=== PATIENT | male | born 1935 ===

== ENCOUNTER 2020-11-18 05:28 | Inpatient (IN) | payer MEDICARE ==
[2020-11-18] MEDS ORDERED: MELATONIN 5 MG TAB PO PRN (06:54)
[2020-11-18] MEDS: traZODone 50 MG TAB PO SCH (21:11)
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
[2020-11-19] MEDS ORDERED: NON-FORMULARY EACH (Apixaban 5 MG Tablet) PO SCH (10:30)
[2020-11-19] MEDS ORDERED: CYANOCOBALAMIN 2500 MCG SL SCH (10:30)
[2020-11-19] MEDS ORDERED: CITALOPRAM HYDROBROMIDE 40 MG PO SCH (10:30)
[2020-11-19] MEDS ORDERED: NON-FORMULARY EACH (Omeprazole [Omeprazole] 20 MG Capsule.Dr) PO SCH (10:30)
[2020-11-19] MEDS ORDERED: RIVASTIGMINE TARTRATE 6 MG PO SCH (10:30)
--- NOTE | 2020-11-19 11:45 | Consultation ---
History of Present Illness - Reason for Consult Consult date: 11/19/20 Medical Management Requesting physician: REYNA HILTON - History of Present Illness 85 YO Male with Vascular Dementia with Behavioral Disturbance, Cerebral Atherosclerosis admitted to [facility] for Psychiatric Stabilization. Consult placed by Dr. Hilton for medical management. Pt seen and evaluated in the recreation room. Pt denies fever, chills, CP, Palpitations, NVD, Skin rash, recent ill contacts, or known exposure to Covid 19. No reported nursing events. Past History Past Surgical History: No surgical history, Other (Reviewed) Social history: . denies: smoking, alcohol abuse Family history: no significant family history (Reviewed) Medications and Allergies Allergies Allergy/AdvReac Type Severity Reaction Status Date / Time amoxicillin [From Augmentin] Allergy Unknown Verified 11/18/20 20:09 cephalexin [From Keflex] Allergy Unknown Verified 11/18/20 20:09 clavulanic acid Allergy Unknown Verified 11/18/20 20:09 [From Augmentin] clindamycin Allergy Unknown Verified 11/18/20 20:09 orphenadrine [From Norflex] Allergy Unknown Verified 11/18/20 20:09 Home Medications Medication Instructions Recorded Confirmed Last Taken Type Apixaban [Eliquis] 5 mg PO DAILY 11/18/20 11/18/20 Unknown History Cetirizine HCl [Zyrtec 10mg tab] 10 mg PO HS 11/18/20 11/18/20 Unknown History Citalopram Hydrobromide [Celexa] 40 mg PO DAILY 11/18/20 11/18/20 Unknown History Cyanocobalamin (Vitamin B-12) 2,500 mcg SL DAILY 11/18/20 11/18/20 Unknown History [Vitamin B-12] Levothyroxine [Synthroid] 75 mcg PO QAM 11/18/20 11/18/20 Unknown History Memantine [Namenda] 10 mg PO BID 11/18/20 11/18/20 Unknown History Metoprolol [Lopressor] 25 mg PO TID 11/18/20 11/18/20 Unknown History Omeprazole 20 mg PO DAILY 11/18/20 11/18/20 Unknown History Pregabalin [Lyrica] 50 mg PO BID 11/18/20 11/18/20 Unknown History Rivastigmine Tartrate 6 mg PO BID 11/18/20 11/18/20 Unknown History [Rivastigmine] Simvastatin 20 mg PO HS 11/18/20 11/18/20 Unknown History traMADoL [Ultram] 50 mg PO TID 11/18/20 11/18/20 Unknown History Active Meds: Active Medications Apixaban (Apixaban 5 Mg Tab) 5 mg PO DAILY [facility] Cetirizine HCl (Cetirizine 10 Mg Tab) 10 mg PO HS [facility] Citalopram Hydrobromide (Citalopram 20 Mg Tab) 40 mg PO DAILY [facility] Cyanocobalamin (Cyanocobalamin (Vit B-12) 1000 Mcg Tab) 2,500 mcg PO QDAY [facility] Levothyroxine Sodium (Levothyroxine 75 Mcg Tab) 75 mcg PO 0600 [facility] Melatonin (Melatonin 5 Mg Tab) 5 mg PO QHS PRN PRN Reason: Sleep Last Admin: 11/18/20 21:11 Dose: 5 mg Documented by: Memantine (Memantine 10 Mg Tab) 10 mg PO BID [facility] Metoprolol Tartrate (Metoprolol Tartrate 25 Mg Tab) 25 mg PO TID [facility] Pantoprazole Sodium (Pantoprazole 20 Mg Tab) 20 mg PO QDAY [facility] Pravastatin Sodium (Pravastatin 20 Mg Tab) 20 mg PO QHS [facility] Pregabalin (Pregabalin 50 Mg Cap) 50 mg PO BID [facility] Rivastigmine Tartrate (Rivastigmine Tartrate 1.5 Mg Cap) 6 mg PO BID [facility] Tramadol HCl (Tramadol 50 Mg Tab) 50 mg PO TID [facility] Trazodone HCl (Trazodone 50 Mg Tab) 50 mg PO QHS [facility] Last Admin: 11/18/20 21:11 Dose: 50 mg Documented by: Review of Systems Constitutional: no weight loss, no weight gain, no fever, no chills Ears, nose, mouth and throat: no ear pain, no ear discharge Cardiovascular: no chest pain, no orthopnea, no palpitations, no rapid/irregular heart beat, no syncope Respiratory: no cough, no cough with sputum, no excessive sputum, no hemoptysis, no dyspnea on exertion Gastrointestinal: no abdominal pain, no nausea, no vomiting, no diarrhea, no constipation, no change in bowel habits Genitourinary Male: no hematuria, no flank pain, no urinary frequency, no urinary hesitancy Rectal: no pain, no incontinence, no bleeding Musculoskeletal: no neck pain, no shooting arm pain, no arm numbness/tingling, no low back pain Integumentary: no rash, no redness, no sores Neurological: no transient paralysis, no weakness, no parathesias, no numbness, no syncope Psychiatric: no anxiety, no change in sleep habits, no hypersomnia, no change in appetite, no change in libido, no suicidal ideation Endocrine: no cold intolerance, no polyphagia, no excessive thirst, no polyuria, no nocturia Hematologic/Lymphatic: no easy bruising, no lymphadenopathy Allergic/Immunologic: no allergic rhinitis, no persistent infections Exam - Constitutional Vitals: Temp Pulse Resp BP Pulse Ox 98.0 F 100 H 18 101/56 94 11/19/20 08:55 11/19/20 08:55 11/19/20 08:55 11/19/20 08:55 11/19/20 08:55 General appearance: Present: no acute distress, well-nourished - EENT Eyes: Present: PERRL ENT: clear oral mucosa, hearing decreased - Neck Neck: Present: supple, normal ROM - Respiratory Respiratory effort: normal Respiratory: bilateral: CTA - Cardiovascular Heart Sounds: Present: S1 & S2. Absent: rub, click - Extremities Extremities: pulses symmetrical, No edema Peripheral Pulses: within normal limits - Abdominal General gastrointestinal: Present: soft, non-tender, non-distended, normal bowel sounds Male genitourinary: Present: normal - Integumentary Integumentary: Present: clear, warm, dry - Musculoskeletal Musculoskeletal: gait normal, strength equal bilaterally - Psychiatric Psychiatric: cooperative - Neurologic Neurologic: CNII-XII intact, moves all extremities Assessment and Plan - Patient Problems (1) Cerebral atherosclerosis Current Visit: Yes Status: Acute Plan to address problem: Supportive care, antiplatelet therapy as clinically indicated. (2) Dementia with behavioral disturbance Current Visit: Yes Status: Acute Qualifiers: Dementia type: vascular dementia Qualified Code(s): F01.51 - Vascular dementia with behavioral disturbance Plan to address problem: verbal prompting, verbal redirection, benzodiazepine therapy as clinically indicated.
[2020-11-19] MEDS: traMADol 50 MG TAB PO SCH ×2 (13:59→21:17)
[2020-11-19] MEDS: CITALOPRAM 20 MG TAB PO SCH (14:00)
[2020-11-19] MEDS: MEMANTINE 10 MG TAB PO SCH ×2 (14:00→21:21)
[2020-11-19] MEDS: METOPROLOL TARTRATE 25 MG TAB PO SCH ×2 (14:00→21:18)
[2020-11-19] MEDS: CYANOCOBALAMIN (VIT B-12) 1000 MCG TAB PO SCH (14:15)
[2020-11-19] MEDS: APIXABAN 5 MG TAB PO SCH (14:15)
[2020-11-19] MEDS: PREGABALIN 50 MG CAP PO SCH ×2 (14:54→21:20)
[2020-11-19] MEDS: RIVASTIGMINE TARTRATE 1.5 MG CAP PO SCH (21:16)
[2020-11-19] MEDS: CETIRIZINE 10 MG TAB PO SCH (21:18)
[2020-11-19] MEDS: traZODone 50 MG TAB PO SCH (21:20)
[2020-11-19] MEDS: PRAVASTATIN 20 MG TAB PO SCH (21:21)
[2020-11-19] MEDS ORDERED: NON-FORMULARY EACH (Simvastatin [Simvastatin] 20 MG Tablet) PO SCH (22:00)
[2020-11-20] MEDS: LEVOTHYROXINE 75 MCG TAB PO SCH (05:50)
[2020-11-20] MEDS ORDERED: CITALOPRAM 20 MG TAB PO SCH (10:00)
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
[2020-11-20] MEDS: MEMANTINE 10 MG TAB PO SCH ×2 (10:11→21:09)
[2020-11-20] MEDS: APIXABAN 5 MG TAB PO SCH (10:11)
[2020-11-20] MEDS: CITALOPRAM 20 MG TAB PO SCH (10:11)
[2020-11-20] MEDS: CYANOCOBALAMIN (VIT B-12) 1000 MCG TAB PO SCH (10:12)
[2020-11-20] MEDS: PANTOPRAZOLE 20 MG TAB PO SCH (10:12)
[2020-11-20] MEDS: RIVASTIGMINE TARTRATE 1.5 MG CAP PO SCH ×2 (10:13→21:09)
[2020-11-20] MEDS: METOPROLOL TARTRATE 25 MG TAB PO SCH ×3 (10:14→21:26)
[2020-11-20] MEDS: traMADol 50 MG TAB PO SCH (10:19)
[2020-11-20] MEDS: risperiDONE 0.25 MG TAB PO SCH ×2 (10:33→21:09)
[2020-11-20] MEDS: PREGABALIN 50 MG CAP PO SCH ×2 (10:49→21:21)
[2020-11-20] MEDS ORDERED: traMADol 50 MG TAB PO PRN (11:00)
[2020-11-20] MEDS: PRAVASTATIN 20 MG TAB PO SCH (21:09)
[2020-11-20] MEDS: CETIRIZINE 10 MG TAB PO SCH (21:09)
[2020-11-20] MEDS: traZODone 50 MG TAB PO SCH (21:09)
[2020-11-21] MEDS: LEVOTHYROXINE 75 MCG TAB PO SCH (05:43)
[2020-11-21] MEDS: METOPROLOL TARTRATE 25 MG TAB PO SCH ×3 (09:28→21:14)
[2020-11-21] MEDS: MEMANTINE 10 MG TAB PO SCH ×2 (09:29→21:16)
[2020-11-21] MEDS: PREGABALIN 50 MG CAP PO SCH ×2 (09:29→21:14)
[2020-11-21] MEDS: CITALOPRAM 20 MG TAB PO SCH (09:29)
[2020-11-21] MEDS: risperiDONE 0.25 MG TAB PO SCH ×2 (09:29→21:15)
[2020-11-21] MEDS: RIVASTIGMINE TARTRATE 1.5 MG CAP PO SCH ×2 (09:30→21:21)
[2020-11-21] MEDS: APIXABAN 5 MG TAB PO SCH (09:30)
[2020-11-21] MEDS: PANTOPRAZOLE 20 MG TAB PO SCH (09:30)
[2020-11-21] MEDS: CYANOCOBALAMIN (VIT B-12) 1000 MCG TAB PO SCH (09:30)
--- NOTE | 2020-11-21 10:18 | Progress Note ---
Subjective Date of service: 11/21/20 Principal diagnosis: (1) Dementia with Behavioral Disturbance Subjective Comment: Per Psych Nurse: pt is compliant with medication, good appetite, no behavioral issues, rested well overnight, slept all night, no distress noted, will continue to monitor for safety Psych Progress HPI Patient seen this AM, improves lucid thought process, aware he is in mental health facility, knows the presidents full name, able to recllect numbers said to him and perform basic artihmeric calculations, patient scored mild to moderate dementia on SLUMS based on assessment. Reason for continuing inpatient treatment: Patient will need to be observed, due to high risk behavior around family members. Review of Symptoms: Unavailable due to current mental status MENTAL STATUS EXAMINATION General Appearance and Behavior: Age appropriate, good hygiene, wearing appropriate clothes, cooperative polite with questioning. Cooperation: engaged Psychomotor Behavior: Psychomotor normal Mood: good Affect and affective range: congruent with mood Thought Process: Tangential, loose associattion Thought Content: Paranoid and confused Speech: Normal volume, Regular rate and rhythm, Intellectual Functioning: Poor Suicidal Ideation: N/A Homicidal Ideation: N/A Impulse Control: Unimpaired Insight and Judgment: Impaired Memory: memory impaired Attention:Distractible, Orientation: Alert, but disoriented and confused Assessment and Plan - Patient Problems (1) Dementia with behavioral disturbance Current Visit: Yes Status: Acute F03.1 Treatment Plan Patient started on Risperidon. Patient admitted for inpatient psychiatric evaluation, medication adjustment and close monitoring The patient's behavior, mood, sleep and appetite will be closely monitored. Patient enrolled in individual and group therapeutic sessions and encouraged to attend. Patient provided with a safe and structured environment. Patient's physical health needs will be addressed by the Hospitalist. Hospitalist Consulted Labs including CBC, CMP, Lipid profile and Hemoglobin A1C levels ordered for baseline reference Social Assessment will be completed and the Mental Health Aide will work with patient and family to ensure a suitable and safe disposition Medication adjustment will be made as clinically indicated Usual Wellness Mormonism/Preservation: - Start Trazodone 50 mg po QHS & 50 mg po QHS PRN between 10 PM & 2 AM for insomnia - Start Melatonin 5 mg po QHS to promote circadian rhythm - Start [place]-3 for brain health, reduce impulsivity, and as adjunctive treatment for mood disorder, continue upon discharge given overall benefits. - Start B1 prophylaxis with 200 mg po for 5 days The patient agreed on the treatment plan, understood the risk, benefit, alternative treatment, potential consequence of no treatment, and gave informed consent. Initial Certification Inpatient psych services: I certify that the inpatient psychiatric services are required for treatment that could reasonably be expected to improve the patient's condition. Estimated days: 5 Post hospital care: primary care provider, psychiatric provider Assessment and Plan - Patient Problems (1) Dementia with behavioral disturbance Current Visit: Yes Status: Acute Medications and Allergies Allergies Allergy/AdvReac Type Severity Reaction Status Date / Time amoxicillin [From Augmentin] Allergy Unknown Verified 11/18/20 20:09 cephalexin [From Keflex] Allergy Unknown Verified 11/18/20 20:09 clavulanic acid Allergy Unknown Verified 11/18/20 20:09 [From Augmentin] clindamycin Allergy Unknown Verified 11/18/20 20:09 orphenadrine [From Norflex] Allergy Unknown Verified 11/18/20 20:09 Home Medications Medication Instructions Recorded Confirmed Last Taken Type Apixaban [Eliquis] 5 mg PO DAILY 11/18/20 11/18/20 Unknown History Cetirizine HCl [Zyrtec 10mg tab] 10 mg PO HS 11/18/20 11/18/20 Unknown History Citalopram Hydrobromide [Celexa] 40 mg PO DAILY 11/18/20 11/18/20 Unknown History Cyanocobalamin (Vitamin B-12) 2,500 mcg SL DAILY 11/18/20 11/18/20 Unknown Hist ory [Vitamin B-12] Levothyroxine [Synthroid] 75 mcg PO QAM 11/18/20 11/18/20 Unknown History Memantine [Namenda] 10 mg PO BID 11/18/20 11/18/20 Unknown History Metoprolol [Lopressor] 25 mg PO TID 11/18/20 11/18/20 Unknown History Omeprazole 20 mg PO DAILY 11/18/20 11/18/20 Unknown History Pregabalin [Lyrica] 50 mg PO BID 11/18/20 11/18/20 Unknown History Rivastigmine Tartrate 6 mg PO BID 11/18/20 11/18/20 Unknown History [Rivastigmine] Simvastatin 20 mg PO HS 11/18/20 11/18/20 Unknown History traMADoL [Ultram] 50 mg PO TID 11/18/20 11/18/20 Unknown History Active Meds: Active Medications Apixaban (Apixaban 5 Mg Tab) 5 mg PO DAILY [facility] Last Admin: 11/21/20 09:30 Dose: 5 mg Documented by: Cetirizine HCl (Cetirizine 10 Mg Tab) 10 mg PO HS [facility] Last Admin: 11/20/20 21:09 Dose: 10 mg Documented by: Citalopram Hydrobromide (Citalopram 20 Mg Tab) 40 mg PO DAILY [facility] Last Admin: 11/21/20 09:29 Dose: 40 mg Documented by: Cyanocobalamin (Cyanocobalamin (Vit B-12) 1000 Mcg Tab) 2,500 mcg PO QDAY [facility] Last Admin: 11/21/20 09:30 Dose: 2,500 mcg Documented by: Levothyroxine Sodium (Levothyroxine 75 Mcg Tab) 75 mcg PO 0600 [facility] Last Admin: 11/21/20 05:43 Dose: 75 mcg Documented by: Melatonin (Melatonin 5 Mg Tab) 5 mg PO QHS PRN PRN Reason: Sleep Last Admin: 11/18/20 21:11 Dose: 5 mg Documented by: Memantine (Memantine 10 Mg Tab) 10 mg PO BID [facility] Last Admin: 11/21/20 09:29 Dose: 10 mg Documented by: Metoprolol Tartrate (Metoprolol Tartrate 25 Mg Tab) 25 mg PO TID [facility] Last Admin: 11/21/20 09:28 Dose: Not Given Documented by: Pantoprazole Sodium (Pantoprazole 20 Mg Tab) 20 mg PO QDAY [facility] Last Admin: 11/21/20 09:30 Dose: 20 mg Documented by: Pravastatin Sodium (Pravastatin 20 Mg Tab) 20 mg PO QHS [facility] Last Admin: 11/20/20 21:09 Dose: 20 mg Documented by: Pregabalin (Pregabalin 50 Mg Cap) 50 mg PO BID [facility] Last Admin: 11/21/20 09:29 Dose: 50 mg Documented by: Risperidone (Risperidone 0.25 Mg Tab) 0.5 mg PO BID [facility] Last Admin: 11/21/20 09:29 Dose: 0.5 mg Documented by: Rivastigmine Tartrate (Rivastigmine Tartrate 1.5 Mg Cap) 6 mg PO BID [facility] Last Admin: 11/21/20 09:30 Dose: 6 mg Documented by: Tramadol HCl (Tramadol 50 Mg Tab) 50 mg PO Q12HR PRN PRN Reason: Pain, Moderate (4-6) Trazodone HCl (Trazodone 50 Mg Tab) 50 mg PO QHS [facility] Last Admin: 11/20/20 21:09 Dose: 50 mg Documented by: Results - Results Labs/Vitals: Laboratory Last Values POC Glucose 103 mg/dL (70-105) 11/18/20 16:37 Last Vital Signs Temp 97.9 F 11/20/20 22:00 Pulse 76 11/21/20 09:28 Resp 18 11/20/20 22:00 BP 104/36 11/21/20 09:28 Pulse Ox 96 11/20/20 22:00
[2020-11-21] MEDS: traZODone 50 MG TAB PO SCH (21:15)
[2020-11-21] MEDS: PRAVASTATIN 20 MG TAB PO SCH (21:15)
[2020-11-21] MEDS: CETIRIZINE 10 MG TAB PO SCH (21:16)
[2020-11-22] MEDS: LEVOTHYROXINE 75 MCG TAB PO SCH (06:45)
[2020-11-22] MEDS: APIXABAN 5 MG TAB PO SCH (09:47)
[2020-11-22] MEDS: CYANOCOBALAMIN (VIT B-12) 1000 MCG TAB PO SCH (09:47)
[2020-11-22] MEDS: RIVASTIGMINE TARTRATE 1.5 MG CAP PO SCH ×2 (09:48→21:03)
[2020-11-22] MEDS: MEMANTINE 10 MG TAB PO SCH ×2 (09:48→21:03)
[2020-11-22] MEDS: PANTOPRAZOLE 20 MG TAB PO SCH (09:48)
[2020-11-22] MEDS: CITALOPRAM 20 MG TAB PO SCH (09:50)
[2020-11-22] MEDS: risperiDONE 0.25 MG TAB PO SCH ×2 (09:51→21:03)
[2020-11-22] MEDS: PREGABALIN 50 MG CAP PO SCH ×2 (10:07→21:04)
[2020-11-22] MEDS: METOPROLOL TARTRATE 25 MG TAB PO SCH ×3 (10:11→21:04)
--- NOTE | 2020-11-22 10:15 | Progress Note ---
Subjective Date of service: 11/22/20 Principal diagnosis: (1) Dementia with Behavioral Disturbance Subjective Comment: Per Psych Nurse: pt is compliant with medication, good appetite, no behavioral issues, rested well overnight, slept all night, no distress noted, will continue to monitor for safety Psych Progress HPI Patient describes a good and stable mood, denies being depressed or excessively nervous. Patient eats and sleeps well. Patient denies panic attacks, recurrent nightmares or flashbacks. Patient denies symptoms suggestive of OCD or PTSD. Patient denies hallucinations, paranoia, thought interference and no features suggestive of hypomania or esa. Patiently completely denies suicidal or homicidal thoughts. P.S. Pt Knows the presidents full name, able to recllect numbers said to him and perform basic artihmeric calculations, patient scored mild to moderate dementia on SLUMS based on assessment. Reason for continuing inpatient treatment: Patient will need to be observed, due to high risk behavior around family members. Review of Symptoms: Unavailable due to current mental status MENTAL STATUS EXAMINATION General Appearance and Behavior: Age appropriate, good hygiene, wearing appropriate clothes, cooperative polite with questioning. Cooperation: engaged Psychomotor Behavior: Psychomotor normal Mood: good Affect and affective range: congruent with mood Thought Process: Tangential, loose associattion Thought Content: Paranoid and confused Speech: Normal volume, Regular rate and rhythm, Intellectual Functioning: Poor Suicidal Ideation: N/A Homicidal Ideation: N/A Impulse Control: Unimpaired Insight and Judgment: Impaired Memory: memory impaired Attention:Distractible, Orientation: Alert, but disoriented and confused Assessment and Plan - Patient Problems (1) Dementia with behavioral disturbance Current Visit: Yes Status: Acute F03.1 Treatment Plan Patient started on Risperidon. Patient admitted for inpatient psychiatric evaluation, medication adjustment and close monitoring The patient's behavior, mood, sleep and appetite will be closely monitored. Patient enrolled in individual and group therapeutic sessions and encouraged to attend. Patient provided with a safe and structured environment. Patient's physical health needs will be addressed by the Hospitalist. Hospitalist Consulted Labs including CBC, CMP, Lipid profile and Hemoglobin A1C levels ordered for baseline reference Social Assessment will be completed and the Buffer Automatic will work with patient and family to ensure a suitable and safe disposition Medication adjustment will be made as clinically indicated Usual Wellness Yarsanism/Preservation: - Start Trazodone 50 mg po QHS & 50 mg po QHS PRN between 10 PM & 2 AM for insomnia - Start Melatonin 5 mg po QHS to promote circadian rhythm - Start [place]-3 for brain health, reduce impulsivity, and as adjunctive treatment for mood disorder, continue upon discharge given overall benefits. - Start B1 prophylaxis with 200 mg po for 5 days The patient agreed on the treatment plan, understood the risk, benefit, alternative treatment, potential consequence of no treatment, and gave informed consent. Initial Certification Inpatient psych services: I certify that the inpatient psychiatric services are required for treatment that could reasonably be expected to improve the patient's condition. Estimated days: 5 Post hospital care: primary care provider, psychiatric provider Assessment and Plan - Patient Problems (1) Dementia with behavioral disturbance Current Visit: Yes Status: Acute Medications and Allergies Allergies Allergy/AdvReac Type Severity Reaction Status Date / Time amoxicillin [From Augmentin] Allergy Unknown Verified 11/18/20 20:09 cephalexin [From Keflex] Allergy Unknown Verified 11/18/20 20:09 clavulanic acid Allergy Unknown Verified 11/18/20 20:09 [From Augmentin] clindamycin Allergy Unknown Verified 11/18/20 20:09 orphenadrine [From Norflex] Allergy Unknown Verified 11/18/20 20:09 Home Medications Medication Instructions Recorded Confirmed Last Taken Type Apixaban [Eliquis] 5 mg PO DAILY 11/18/20 11/18/20 Unknown History Cetirizine HCl [Zyrtec 10mg tab] 10 mg PO HS 11/18/20 11/18/20 Unknown History Citalopram Hydrobromide [Celexa] 40 mg PO DAILY 11/18/20 11/18/20 Unknown History Cyanocobalamin (Vitamin B-12) 2,500 mcg SL DAILY 11/18/20 11/18/20 Unknown History [Vitamin B-12] Levothyroxine [Synthroid] 75 mcg PO QAM 11/18/20 11/18/20 Unknown History Memantine [Namenda] 10 mg PO BID 11/18/20 11/18/20 Unknown History Metoprolol [Lopressor] 25 mg PO TID 11/18/20 11/18/20 Unknown History Omeprazole 20 mg PO DAILY 11/18/20 11/18/20 Unknown History Pregabalin [Lyrica] 50 mg PO BID 11/18/20 11/18/20 Unknown History Rivastigmine Tartrate 6 mg PO BID 11/18/20 11/18/20 Unknown History [Rivastigmine] Simvastatin 20 mg PO HS 11/18/20 11/18/20 Unknown History traMADoL [Ultram] 50 mg PO TID 11/18/20 11/18/20 Unknown History Active Meds: Active Medications Apixaban (Apixaban 5 Mg Tab) 5 mg PO DAILY [facility] Last Admin: 11/22/20 09:47 Dose: 5 mg Documented by: Cetirizine HCl (Cetirizine 10 Mg Tab) 10 mg PO [facility] Last Admin: 11/21/20 21:16 Dose: 10 mg Documented by: Citalopram Hydrobromide (Citalopram 20 Mg Tab) 40 mg PO DAILY [facility] Last Admin: 11/22/20 09:50 Dose: 40 mg Documented by: Cyanocobalamin (Cyanocobalamin (Vit B-12) 1000 Mcg Tab) 2,500 mcg PO QDAY [facility] Last Admin: 11/22/20 09:47 Dose: 2,500 mcg Documented by: Levothyroxine Sodium (Levothyroxine 75 Mcg Tab) 75 mcg PO 0600 [facility] Last Admin: 11/22/20 06:45 Dose: 75 mcg Documented by: Melatonin (Melatonin 5 Mg Tab) 5 mg PO QHS PRN PRN Reason: Sleep Last Admin: 11/18/20 21:11 Dose: 5 mg Documented by: Memantine (Memantine 10 Mg Tab) 10 mg PO BID [facility] Last Admin: 11/22/20 09:48 Dose: 10 mg Documented by: Metoprolol Tartrate (Metoprolol Tartrate 25 Mg Tab) 25 mg PO TID [facility] Last Admin: 11/22/20 10:11 Dose: Not Given Documented by: Pantoprazole Sodium (Pantoprazole 20 Mg Tab) 20 mg PO QDAY [facility] Last Admin: 11/22/20 09:48 Dose: 20 mg Documented by: Pravastatin Sodium (Pravastatin 20 Mg Tab) 20 mg PO QHS [facility] Last Admin: 11/21/20 21:15 Dose: 20 mg Documented by: Pregabalin (Pregabalin 50 Mg Cap) 50 mg PO BID [facility] Last Admin: 11/22/20 10:07 Dose: 50 mg Documented by: Risperidone (Risperidone 0.25 Mg Tab) 0.5 mg PO BID [facility] Last Admin: 11/22/20 09:51 Dose: 0.5 mg Documented by: Rivastigmine Tartrate (Rivastigmine Tartrate 1.5 Mg Cap) 6 mg PO BID [facility] Last Admin: 11/22/20 09:48 Dose: 6 mg Documented by: Tramadol HCl (Tramadol 50 Mg Tab) 50 mg PO Q12HR PRN PRN Reason: Pain, Moderate (4-6) Trazodone HCl (Trazodone 50 Mg Tab) 50 mg PO QHS [facility] Last Admin: 11/21/20 21:15 Dose: 50 mg Documented by: Results - Results Labs/Vitals: Laboratory Last Values POC Glucose 103 mg/dL (70-105) 11/18/20 16:37 Last Vital Signs Temp 97.7 F 11/22/20 08:27 Pulse 82 11/22/20 08:27 Resp 18 11/22/20 08:27 BP 110/49 11/22/20 08:27 Pulse Ox 95 11/22/20 08:27
--- NOTE | 2020-11-22 20:30 | Progress Note ---
Assessment and Plan - Patient Problems (1) Cerebral atherosclerosis Current Visit: Yes Status: Acute Plan to address problem: Supportive care, antiplatelet therapy as clinically indicated. (2) Dementia with behavioral disturbance Current Visit: Yes Status: Acute Qualifiers: Dementia type: vascular dementia Qualified Code(s): F01.51 - Vascular dementia with behavioral disturbance Plan to address problem: verbal prompting, verbal redirection, benzodiazepine therapy as clinically indicated. History Interval history: 85 YO Male with Vascular Dementia with Behavioral Disturbance, Cerebral Atherosclerosis admitted to [facility] for Psychiatric Stabilization. Pt seen and evaluated in the recreation room. No reported nursing events. Hospitalist Physical - Constitutional Vitals: Temp Pulse Resp BP Pulse Ox 98.4 F 82 16 102/54 97 11/22/20 13:43 11/22/20 13:43 11/22/20 13:43 11/22/20 13:43 11/22/20 13:43 General appearance: Present: no acute distress, well-nourished - EENT Eyes: Present: PERRL, EOM intact ENT: hearing intact - Neck Neck: Present: supple - Respiratory Respiratory effort: normal Respiratory: bilateral: CTA - Cardiovascular Rhythm: regular Heart Sounds: Present: S1 & S2 - Extremities Extremities: no ischemia Peripheral Pulses: within normal limits - Abdominal General gastrointestinal: soft, non-tender, non-distended - Integumentary Integumentary: Present: clear, dry - Psychiatric Psychiatric: appropriate mood/affect, cooperative - Neurologic Neurologic: CNII-XII intact Results - Labs Labs: Laboratory Last Values POC Glucose 103 mg/dL (70-105) 11/18/20 16:37 Ayala/IV: Voiding Method Toilet Active Medications - Current Medications Current Medications: Generic Name Dose Route Start Last Admin Trade Name Freq PRN Reason Stop Dose Admin Apixaban 5 mg 11/19/20 12:00 11/22/20 09:47 Apixaban 5 Mg Tab PO 5 mg DAILY [facility] Administration Cetirizine HCl 10 mg 11/19/20 22:00 11/21/20 21:16 Cetirizine 10 Mg Tab PO 10 mg HS [facility]IE Administration Citalopram Hydrobromide 40 mg 11/19/20 12:00 11/22/20 09:50 Citalopram 20 Mg Tab PO 40 mg DAILY [facility] Administration Cyanocobalamin 2,500 mcg 11/19/20 12:00 11/22/20 09:47 Cyanocobalamin (Vit B-12) 1000 Mcg Tab PO 2,500 mcg QDAY [facility] Administration Levothyroxine Sodium 75 mcg 11/20/20 06:00 11/22/20 06:45 Levothyroxine 75 Mcg Tab PO 75 mcg 0600 [facility] Administration Melatonin 5 mg 11/18/20 06:54 11/18/20 21:11 Melatonin 5 Mg Tab PO 5 mg QHS PRN Administration Sleep Memantine 10 mg 11/19/20 11:00 11/22/20 09:48 Memantine 10 Mg Tab PO 10 mg BID [facility] Administration Metoprolol Tartrate 25 mg 11/19/20 14:00 11/22/20 13:56 Metoprolol Tartrate 25 Mg Tab PO Not Given TID [facility]OH[facility]IE Pantoprazole Sodium 20 mg 11/20/20 10:00 11/22/20 09:48 Pantoprazole 20 Mg Tab PO 20 mg QDAY [facility] Administration Pravastatin Sodium 20 mg 11/19/20 22:00 11/21/20 21:15 Pravastatin 20 Mg Tab PO 20 mg QHS [facility] Administration Pregabalin 50 mg 11/19/20 12:00 11/22/20 10:07 Pregabalin 50 Mg Cap PO 50 mg BID [facility] Administration Risperidone 0.5 mg 11/20/20 11:00 11/22/20 09:51 Risperidone 0.25 Mg Tab PO 0.5 mg BID [facility] Administration Rivastigmine Tartrate 6 mg 11/19/20 22:00 11/22/20 09:48 Rivastigmine Tartrate 1.5 Mg Cap PO 6 mg BID [facility] Administration Tramadol HCl 50 mg 11/20/20 11:00 Tramadol 50 Mg Tab PO Q12HR PRN Pain, Moderate (4-6) Trazodone HCl 50 mg 11/18/20 22:00 11/21/20 21:15 Trazodone 50 Mg Tab PO 50 mg QHS [facility] Administration
[2020-11-22] MEDS: traZODone 50 MG TAB PO SCH (21:03)
[2020-11-22] MEDS: CETIRIZINE 10 MG TAB PO SCH (21:04)
[2020-11-22] MEDS: PRAVASTATIN 20 MG TAB PO SCH (21:04)
[2020-11-22 23:05] LABS: Basophils # (Auto) 0.1 K/mm3 (0.0-0.1); Basophils % (Auto) 0.6 % (0.0-1.8); Eosinophils # (Auto) 0.3 K/mm3 (0.0-0.4); Eosinophils % (Auto) 3.6 % (0.0-4.3); Hematocrit 37.2 % (35.5-45.6); Hemoglobin 12.8 gm/dl (11.8-15.2); Lymphocytes # (Auto) 1.8 K/mm3 (1.2-5.4); Lymphocytes % (Auto) 19.6 % (13.4-35.0); Mean Corpuscular HGB Conc 34 % (32-34); Mean Corpuscular Volume 98 fl (84-94); Monocytes # (Auto) 1.1 K/mm3 (0.0-0.8); Monocytes % (Auto) 11.6 % (0.0-7.3); Platelet Count 175 K/mm3 (140-440); Red Blood Count 3.81 M/mm3 (3.65-5.03)
[2020-11-22 23:50] LABS: Albumin 3.2 g/dL (3.9-5); Calcium 8.7 mg/dL (8.4-10.2)
[2020-11-23 00:56] LABS: Chol/HDL Ratio 4.54 %
[2020-11-23] MEDS: LEVOTHYROXINE 75 MCG TAB PO SCH (05:47)
--- NOTE | 2020-11-23 07:55 | Progress Note ---
Subjective Date of service: 11/23/20 Principal diagnosis: (1) Dementia with Behavioral Disturbance Subjective Comment: Per Psych Nurse: Last evening the patient spent time in the activity room with peers. He smiled and interacted appropriately. He went to bed early. He denies si/hi/ah/vh. His appetite is good. He was medication compliant. Overnight he rested quietly and presents as sleeping 9 hours. Will continue to monitor patient for safety. Psych Progress HPI Patient seen this AM, says he has no complaints, endorses sleeping good, no night disturbances and has been med compliant. P.S. Pt Knows the presidents full name, able to recllect numbers said to him and perform basic arithmetic calculations, patient scored mild to moderate dementia on SLUMS based on assessment. Reason for continuing inpatient treatment: Patient has been mood stable so far, patient now safety discharge pending. Review of Symptoms: Unavailable due to current mental status MENTAL STATUS EXAMINATION General Appearance and Behavior: Age appropriate, good hygiene, wearing appropriate clothes, cooperative polite with questioning. Cooperation: engaged Psychomotor Behavior: Psychomotor normal Mood: good Affect and affective range: congruent with mood Thought Process: circumstantial Thought Content: logical Speech: Normal volume, Regular rate and rhythm, Intellectual Functioning: fair Suicidal Ideation: denies Homicidal Ideation: denies Impulse Control: Unimpaired Insight and Judgment: Impaired Memory: memory impaired Attention:Distractible, Orientation: Alert, and oriented to facility Assessment and Plan - Patient Problems (1) Dementia with behavioral disturbance Current Visit: Yes Status: Acute F03.1 Treatment Plan Continue current medications. Patient admitted for inpatient psychiatric evaluation, medication adjustment and close monitoring The patient's behavior, mood, sleep and appetite will be closely monitored. Patient enrolled in individual and group therapeutic sessions and encouraged to attend. Patient provided with a safe and structured environment. Patient's physical health needs will be addressed by the Hospitalist. Hospitalist Consulted Labs including CBC, CMP, Lipid profile and Hemoglobin A1C levels ordered for baseline reference Social Assessment will be completed and the School Commissioner will work with patient and family to ensure a suitable and safe disposition Medication adjustment will be made as clinically indicated Usual Wellness Synagogue/Preservation: - Start Trazodone 50 mg po QHS & 50 mg po QHS PRN between 10 PM & 2 AM for insomnia - Start Melatonin 5 mg po QHS to promote circadian rhythm - Start [place]-3 for brain health, reduce impulsivity, and as adjunctive treatment for mood disorder, continue upon discharge given overall benefits. - Start B1 prophylaxis with 200 mg po for 5 days The patient agreed on the treatment plan, understood the risk, benefit, alternative treatment, potential consequence of no treatment, and gave informed consent. Initial Certification Inpatient psych services: I certify that the inpatient psychiatric services are required for treatment that could reasonably be expected to improve the patient's condition. Estimated days: 4 Post hospital care: primary care provider, psychiatric provider Assessment and Plan - Patient Problems (1) Dementia with behavioral disturbance Current Visit: Yes Status: Acute Qualifiers: Dementia type: vascular dementia Qualified Code(s): F01.51 - Vascular dementia with behavioral disturbance Medications and Allergies Allergies Allergy/AdvReac Type Severity Reaction Status Date / Time amoxicillin [From Augmentin] Allergy Unknown Verified 11/18/20 20:09 cephalexin [From Keflex] Allergy Unknown Verified 11/18/20 20:09 clavulanic acid Allergy Unknown Verified 11/18/20 20:09 [From Augmentin] clindamycin Allergy Unknown Verified 11/18/20 20:09 orphenadrine [From Norflex] Allergy Unknown Verified 11/18/20 20:09 Home Medications Medication Instructions Recorded Confirmed Last Taken Type Apixaban [Eliquis] 5 mg PO DAILY 11/18/20 11/18/20 Unknown History Cetirizine HCl [Zyrtec 10mg tab] 10 mg PO HS 11/18/20 11/18/20 Unknown History Citalopram Hydrobromide [Celexa] 40 mg PO DAILY 11/18/20 11/18/20 Unknown History Cyanocobalamin (Vitamin B-12) 2,500 mcg SL DAILY 11/18/20 11/18/20 Unknown History [Vitamin B-12] Levothyroxine [Synthroid] 75 mcg PO QAM 11/18/20 11/18/20 Unknown History Memantine [Namenda] 10 mg PO BID 11/18/20 11/18/20 Unknown History Metoprolol [Lopressor] 25 mg PO TID 11/18/20 11/18/20 Unknown History Omeprazole 20 mg PO DAILY 11/18/20 11/18/20 Unknown History Pregabalin [Lyrica] 50 mg PO BID 11/18/20 11/18/20 Unknown History Rivastigmine Tartrate 6 mg PO BID 11/18/20 11/18/20 Unknown History [Rivastigmine] Simvastatin 20 mg PO HS 11/18/20 11/18/20 Unknown History traMADoL [Ultram] 50 mg PO TID 11/18/20 11/18/20 Unknown History Active Meds: Active Medications Apixaban (Apixaban 5 Mg Tab) 5 mg PO DAILY [facility] Last Admin: 11/22/20 09:47 Dose: 5 mg Documented by: Cetirizine HCl (Cetirizine 10 Mg Tab) 10 mg PO [facility] Last Admin: 11/22/20 21:04 Dose: 10 mg Documented by: Citalopram Hydrobromide (Citalopram 20 Mg Tab) 40 mg PO DAILY [facility] Last Admin: 11/22/20 09:50 Dose: 40 mg Documented by: Cyanocobalamin (Cyanocobalamin (Vit B-12) 1000 Mcg Tab) 2,500 mcg PO QDAY [facility] Last Admin: 11/22/20 09:47 Dose: 2,500 mcg Documented by: Levothyroxine Sodium (Levothyroxine 75 Mcg Tab) 75 mcg PO 0600 [facility] Last Admin: 11/23/20 05:47 Dose: 75 mcg Documented by: Melatonin (Melatonin 5 Mg Tab) 5 mg PO QHS PRN PRN Reason: Sleep Last Admin: 11/18/20 21:11 Dose: 5 mg Documented by: Memantine (Memantine 10 Mg Tab) 10 mg PO BID [facility] Last Admin: 11/22/20 21:03 Dose: 10 mg Documented by: Metoprolol Tartrate (Metoprolol Tartrate 25 Mg Tab) 25 mg PO TID [facility] Last Admin: 11/22/20 21:04 Dose: 25 mg Documented by: Pantoprazole Sodium (Pantoprazole 20 Mg Tab) 20 mg PO QDAY [facility] Last Admin: 11/22/20 09:48 Dose: 20 mg Documented by: Pravastatin Sodium (Pravastatin 20 Mg Tab) 20 mg PO QHS [facility] Last Admin: 11/22/20 21:04 Dose: 20 mg Documented by: Pregabalin (Pregabalin 50 Mg Cap) 50 mg PO BID [facility] Last Admin: 11/22/20 21:04 Dose: 50 mg Documented by: Risperidone (Risperidone 0.25 Mg Tab) 0.5 mg PO BID [facility] Last Admin: 11/22/20 21:03 Dose: 0.5 mg Documented by: Rivastigmine Tartrate (Rivastigmine Tartrate 1.5 Mg Cap) 6 mg PO BID [facility] Last Admin: 11/22/20 21:03 Dose: 6 mg Documented by: Tramadol HCl (Tramadol 50 Mg Tab) 50 mg PO Q12HR PRN PRN Reason: Pain, Moderate (4-6) Trazodone HCl (Trazodone 50 Mg Tab) 50 mg PO QHS [facility] Last Admin: 11/22/20 21:03 Dose: 50 mg Documented by: Results - Results Labs/Vitals: Laboratory Last Values WBC 9.1 K/mm3 (4.5-11.0) 11/22/20 22:46 RBC 3.81 M/mm3 (3.65-5.03) 11/22/20 22:46 Hgb 12.8 gm/dl (11.8-15.2) 11/22/20 22:46 Hct 37.2 % (35.5-45.6) 11/22/20 22:46 MCV 98 fl (84-94) H 11/22/20 22:46 MCH 34 pg (28-32) H 11/22/20 22:46 MCHC 34 % (32-34) 11/22/20 22:46 RDW 14.0 % (13.2-15.2) 11/22/20 22:46 Plt Count 175 K/mm3 (140-440) 11/22/20 22:46 Lymph % (Auto) 19.6 % (13.4-35.0) 11/22/20 22:46 [place] % (Auto) 11.6 % (0.0-7.3) H 11/22/20 22:46 Eos % (Auto) 3.6 % (0.0-4.3) 11/22/20 22:46 Baso % (Auto) 0.6 % (0.0-1.8) 11/22/20 22:46 Lymph # (Auto) 1.8 K/mm3 (1.2-5.4) 11/22/20 22:46 [place] # (Auto) 1.1 K/mm3 (0.0-0.8) H 11/22/20 22:46 Eos # (Auto) 0.3 K/mm3 (0.0-0.4) 11/22/20 22:46 Baso # (Auto) 0.1 K/mm3 (0.0-0.1) 11/22/20 22:46 Seg Neutrophils % 64.6 % (40.0-70.0) 11/22/20 22:46 Seg Neutrophils # 5.9 K/mm3 (1.8-7.7) 11/22/20 22:46 Sodium 138 mmol/L (137-145) 11/22/20 22:46 Potassium 3.9 mmol/L (3.6-5.0) 11/22/20 22:46 Chloride 104.7 mmol/L (98-107) 11/22/20 22:46 Carbon Dioxide 24 mmol/L (22-30) 11/22/20 22:46 Anion Gap 13 mmol/L 11/22/20 22:46 BUN 22 mg/dL (9-20) H 11/22/20 22:46 Creatinine 1.2 mg/dL (0.8-1.3) 11/22/20 22:46 Estimated GFR 57 ml/min 11/22/20 22:46 BUN/Creatinine Ratio 18 % 11/22/20 22:46 Glucose 95 mg/dL (75-100) 11/22/20 22:46 POC Glucose 103 mg/dL (70-105) 11/18/20 16:37 Hemoglobin A1c 5.8 % (4-6) 11/22/20 22:46 Calcium 8.7 mg/dL (8.4-10.2) 11/22/20 22:46 Total Bilirubin 0.40 mg/dL (0.1-1.2) 11/22/20 22:46 AST 22 units/L (5-40) 11/22/20 22:46 ALT 16 units/L (7-56) 11/22/20 22:46 Alkaline Phosphatase 75 units/L (35-129) 11/22/20 22:46 Total Protein 5.8 g/dL (6.3-8.2) L 11/22/20 22:46 Albumin 3.2 g/dL (3.9-5) L 11/22/20 22:46 Albumin/Globulin Ratio 1.2 % 11/22/20 22:46 Triglycerides 144 mg/dL (2-149) 11/22/20 22:46 Cholesterol 150 mg/dL (50-199) 11/22/20 22:46 LDL Cholesterol Direct 126 mg/dL (50-130) 11/22/20 22:46 HDL Cholesterol 33 mg/dL (40-59) L 11/22/20 22:46 Cholesterol/HDL Ratio 4.54 % 11/22/20 22:46 TSH 3.680 mlU/mL (0.270-4.200) 11/22/20 22:46 Last Vital Signs Temp 98.5 F 11/22/20 19:36 Pulse 89 11/22/20 21:04 Resp 18 11/22/20 19:36 BP 131/67 11/22/20 21:04 Pulse Ox 96 11/22/20 19:36
[2020-11-23] MEDS: METOPROLOL TARTRATE 25 MG TAB PO SCH ×3 (10:01→21:12)
[2020-11-23] MEDS: APIXABAN 5 MG TAB PO SCH (10:03)
[2020-11-23] MEDS: MEMANTINE 10 MG TAB PO SCH ×2 (10:03→21:11)
[2020-11-23] MEDS: CITALOPRAM 20 MG TAB PO SCH (10:03)
[2020-11-23] MEDS: risperiDONE 0.25 MG TAB PO SCH ×2 (10:04→21:11)
[2020-11-23] MEDS: RIVASTIGMINE TARTRATE 1.5 MG CAP PO SCH ×2 (10:04→21:10)
[2020-11-23] MEDS: PREGABALIN 50 MG CAP PO SCH ×2 (10:04→21:27)
[2020-11-23] MEDS: PANTOPRAZOLE 20 MG TAB PO SCH (10:04)
[2020-11-23] MEDS: CYANOCOBALAMIN (VIT B-12) 1000 MCG TAB PO SCH (10:05)
--- NOTE | 2020-11-23 19:55 | Progress Note ---
Assessment and Plan - Patient Problems (1) Cerebral atherosclerosis Current Visit: Yes Status: Acute Plan to address problem: Supportive care, antiplatelet therapy as clinically indicated. (2) Dementia with behavioral disturbance Current Visit: Yes Status: Acute Qualifiers: Dementia type: vascular dementia Qualified Code(s): F01.51 - Vascular dementia with behavioral disturbance Plan to address problem: verbal prompting, verbal redirection, benzodiazepine therapy as clinically indicated. History Interval history: 85 YO Male with Vascular Dementia with Behavioral Disturbance, Cerebral Atherosclerosis admitted to [facility] for Psychiatric Stabilization. Pt seen and evaluated in the recreation room. No reported nursing events. Hospitalist Physical - Constitutional Vitals: Temp Pulse Resp BP Pulse Ox 98.4 F 86 18 130/69 98 11/23/20 08:51 11/23/20 14:56 11/23/20 08:51 11/23/20 14:56 11/23/20 08:51 General appearance: Present: no acute distress, well-nourished - EENT Eyes: Present: PERRL, EOM intact ENT: hearing intact - Neck Neck: Present: supple - Respiratory Respiratory effort: normal Respiratory: bilateral: CTA - Cardiovascular Rhythm: regular Heart Sounds: Present: S1 & S2 - Extremities Extremities: no ischemia Peripheral Pulses: within normal limits - Abdominal General gastrointestinal: soft, non-tender, non-distended - Integumentary Integumentary: Present: clear, dry - Psychiatric Psychiatric: cooperative - Neurologic Neurologic: CNII-XII intact Results - Labs CBC & Chem 7: 11/22/20 22:46 11/22/20 22:46 Labs: Laboratory Last Values WBC 9.1 K/mm3 (4.5-11.0) 11/22/20 22:46 RBC 3.81 M/mm3 (3.65-5.03) 11/22/20 22:46 Hgb 12.8 gm/dl (11.8-15.2) 11/22/20 22:46 Hct 37.2 % (35.5-45.6) 11/22/20 22:46 MCV 98 fl (84-94) H 11/22/20 22:46 MCH 34 pg (28-32) H 11/22/20 22:46 MCHC 34 % (32-34) 11/22/20 22:46 RDW 14.0 % (13.2-15.2) 11/22/20 22:46 Plt Count 175 K/mm3 (140-440) 11/22/20 22:46 Lymph % (Auto) 19.6 % (13.4-35.0) 11/22/20 22:46 [place] % (Auto) 11.6 % (0.0-7.3) H 11/22/20 22:46 Eos % (Auto) 3.6 % (0.0-4.3) 11/22/20 22:46 Baso % (Auto) 0.6 % (0.0-1.8) 11/22/20 22:46 Lymph # (Auto) 1.8 K/mm3 (1.2-5.4) 11/22/20 22:46 [place] # (Auto) 1.1 K/mm3 (0.0-0.8) H 11/22/20 22:46 Eos # (Auto) 0.3 K/mm3 (0.0-0.4) 11/22/20 22:46 Baso # (Auto) 0.1 K/mm3 (0.0-0.1) 11/22/20 22:46 Seg Neutrophils % 64.6 % (40.0-70.0) 11/22/20 22:46 Seg Neutrophils # 5.9 K/mm3 (1.8-7.7) 11/22/20 22:46 Sodium 138 mmol/L (137-145) 11/22/20 22:46 Potassium 3.9 mmol/L (3.6-5.0) 11/22/20 22:46 Chloride 104.7 mmol/L (98-107) 11/22/20 22:46 Carbon Dioxide 24 mmol/L (22-30) 11/22/20 22:46 Anion Gap 13 mmol/L 11/22/20 22:46 BUN 22 mg/dL (9-20) H 11/22/20 22:46 Creatinine 1.2 mg/dL (0.8-1.3) 11/22/20 22:46 Estimated GFR 57 ml/min 11/22/20 22:46 BUN/Creatinine Ratio 18 % 11/22/20 22:46 Glucose 95 mg/dL (75-100) 11/22/20 22:46 POC Glucose 103 mg/dL (70-105) 11/18/20 16:37 Hemoglobin A1c 5.8 % (4-6) 11/22/20 22:46 Calcium 8.7 mg/dL (8.4-10.2) 11/22/20 22:46 Total Bilirubin 0.40 mg/dL (0.1-1.2) 11/22/20 22:46 AST 22 units/L (5-40) 11/22/20 22:46 ALT 16 units/L (7-56) 11/22/20 22:46 Alkaline Phosphatase 75 units/L (35-129) 11/22/20 22:46 Total Protein 5.8 g/dL (6.3-8.2) L 11/22/20 22:46 Albumin 3.2 g/dL (3.9-5) L 11/22/20 22:46 Albumin/Globulin Ratio 1.2 % 11/22/20 22:46 Triglycerides 144 mg/dL (2-149) 11/22/20 22:46 Cholesterol 150 mg/dL (50-199) 11/22/20 22:46 LDL Cholesterol Direct 126 mg/dL (50-130) 11/22/20 22:46 HDL Cholesterol 33 mg/dL (40-59) L 11/22/20 22:46 Cholesterol/HDL Ratio 4.54 % 11/22/20 22:46 TSH 3.680 mlU/mL (0.270-4.200) 11/22/20 22:46 [place]/IV: Voiding Method Toilet Active Medications - Current Medications Current Medications: Generic Name Dose Route Start Last Admin Trade Name Freq PRN Reason Stop Dose Admin Apixaban 5 mg 11/19/20 12:00 11/23/20 10:03 Apixaban 5 Mg Tab PO 5 mg DAILY JOHNNIE Administration Cetirizine HCl 10 mg 11/19/20 22:00 11/22/20 21:04 Cetirizine 10 Mg Tab PO 10 mg HS JOHNNIE Administration Citalopram Hydrobromide 40 mg 11/19/20 12:00 11/23/20 10:03 Citalopram 20 Mg Tab PO 40 mg DAILY JOHNNIE Administration Cyanocobalamin 2,500 mcg 11/19/20 12:00 11/23/20 10:05 Cyanocobalamin (Vit B-12) 1000 Mcg Tab PO 2,500 mcg QDAY JOHNNIE Administration Levothyroxine Sodium 75 mcg 11/20/20 06:00 11/23/20 05:47 Levothyroxine 75 Mcg Tab PO 75 mcg 0600 JOHNNIE Administration Melatonin 5 mg 11/18/20 06:54 11/18/20 21:11 Melatonin 5 Mg Tab PO 5 mg QHS PRN Administration Sleep Memantine 10 mg 11/19/20 11:00 11/23/20 10:03 Memantine 10 Mg Tab PO 10 mg BID JOHNNIE Administration Metoprolol Tartrate 25 mg 11/19/20 14:00 11/23/20 14:56 Metoprolol Tartrate 25 Mg Tab PO 25 mg TID JOHNNIE Administration Pantoprazole Sodium 20 mg 11/20/20 10:00 11/23/20 10:04 Pantoprazole 20 Mg Tab PO 20 mg QDAY JOHNNIE Administration Pravastatin Sodium 20 mg 11/19/20 22:00 11/22/20 21:04 Pravastatin 20 Mg Tab PO 20 mg QHS JOHNNIE Administration Pregabalin 50 mg 11/19/20 12:00 11/23/20 10:04 Pregabalin 50 Mg Cap PO 50 mg BID JOHNNIE Administration Risperidone 0.5 mg 11/20/20 11:00 11/23/20 10:04 Risperidone 0.25 Mg Tab PO 0.5 mg BID JOHNNIE Administration Rivastigmine Tartrate 6 mg 11/19/20 22:00 11/23/20 10:04 Rivastigmine Tartrate 1.5 Mg Cap PO 6 mg BID JOHNNIE Administration Tramadol HCl 50 mg 11/20/20 11:00 Tramadol 50 Mg Tab PO Q12HR PRN Pain, Moderate (4-6) Trazodone HCl 50 mg 11/18/20 22:00 11/22/20 21:03 Trazodone 50 Mg Tab PO 50 mg QHS JOHNNIE Administration
[2020-11-23] MEDS: traZODone 50 MG TAB PO SCH (21:11)
[2020-11-23] MEDS: CETIRIZINE 10 MG TAB PO SCH (21:11)
[2020-11-23] MEDS: PRAVASTATIN 20 MG TAB PO SCH (21:11)
[2020-11-24] MEDS: LEVOTHYROXINE 75 MCG TAB PO SCH (05:51)
--- NOTE | 2020-11-24 07:51 | Progress Note ---
Subjective Date of service: 11/24/20 Principal diagnosis: (1) Dementia with Behavioral Disturbance Subjective Comment: Per Psych Nurse: pt spent last night in activity room interacting with peer, calm and cooperative, no behavioral issue, medication compliant, good appetite. pt slept all night, no distress noted, will continue to monitor for safety Psych Progress HPI Patient in room having a bath this AM, self grooming and taking care of self. Patient denies any acute concerns, reports doing well so far, denies abnormal thoughts disorder or having a disturbed night. Denies SI, HI or AVH. P.S. Pt Knows the presidents full name, able to recllect numbers said to him and perform basic arithmetic calculations, patient scored mild to moderate dementia on SLUMS based on assessment. Reason for continuing inpatient treatment: Patient has been mood stable so far, patient now safety discharge pending. Review of Symptoms: Unavailable due to current mental status MENTAL STATUS EXAMINATION General Appearance and Behavior: Age appropriate, good hygiene, wearing appropriate clothes, cooperative polite with questioning. Cooperation: engaged Psychomotor Behavior: Psychomotor normal Mood: good Affect and affective range: congruent with mood Thought Process: circumstantial Thought Content: logical Speech: Normal volume, Regular rate and rhythm, Intellectual Functioning: fair Suicidal Ideation: denies Homicidal Ideation: denies Impulse Control: Unimpaired Insight and Judgment: Impaired Memory: memory impaired Attention:Distractible, Orientation: Alert, and oriented to facility Assessment and Plan - Patient Problems (1) Dementia with behavioral disturbance Current Visit: Yes Status: Acute F03.1 Treatment Plan Continue current medications. Patient admitted for inpatient psychiatric evaluation, medication adjustment and close monitoring The patient's behavior, mood, sleep and appetite will be closely monitored. Patient enrolled in individual and group therapeutic sessions and encouraged to attend. Patient provided with a safe and structured environment. Patient's physical health needs will be addressed by the Hospitalist. Hospitalist Consulted Labs including CBC, CMP, Lipid profile and Hemoglobin A1C levels ordered for baseline reference Social Assessment will be completed and the Wind Operations Supervisor will work with patient and family to ensure a suitable and safe disposition Medication adjustment will be made as clinically indicated Usual Wellness Buddhist/Preservation: - Start Trazodone 50 mg po QHS & 50 mg po QHS PRN between 10 PM & 2 AM for insomnia - Start Melatonin 5 mg po QHS to promote circadian rhythm - Start [place]-3 for brain health, reduce impulsivity, and as adjunctive treatment for mood disorder, continue upon discharge given overall benefits. - Start B1 prophylaxis with 200 mg po for 5 days The patient agreed on the treatment plan, understood the risk, benefit, alternative treatment, potential consequence of no treatment, and gave informed consent. Initial Certification Inpatient psych services: I certify that the inpatient psychiatric services are required for treatment that could reasonably be expected to improve the patient's condition. Estimated days: 2 Post hospital care: primary care provider, psychiatric provider Assessment and Plan - Patient Problems (1) Dementia with behavioral disturbance Current Visit: Yes Status: Acute Qualifiers: Dementia type: vascular dementia Qualified Code(s): F01.51 - Vascular dementia with behavioral disturbance Medications and Allergies Allergies Allergy/AdvReac Type Severity Reaction Status Date / Time amoxicillin [From Augmentin] Allergy Unknown Verified 11/18/20 20:09 cephalexin [From Keflex] Allergy Unknown Verified 11/18/20 20:09 clavulanic acid Allergy Unknown Verified 11/18/20 20:09 [From Augmentin] clindamycin Allergy Unknown Verified 11/18/20 20:09 orphenadrine [From Norflex] Allergy Unknown Verified 11/18/20 20:09 Home Medications Medication Instructions Recorded Confirmed Last Taken Type Apixaban [Eliquis] 5 mg PO DAILY 11/18/20 11/18/20 Unknown History Cetirizine HCl [Zyrtec 10mg tab] 10 mg PO HS 11/18/20 11/18/20 Unknown History Citalopram Hydrobromide [Celexa] 40 mg PO DAILY 11/18/20 11/18/20 Unknown History Cyanocobalamin (Vitamin B-12) 2,500 mcg SL DAILY 11/18/20 11/18/20 Unknown History [Vitamin B-12] Levothyroxine [Synthroid] 75 mcg PO QAM 11/18/20 11/18/20 Unknown History Memantine [Namenda] 10 mg PO BID 11/18/20 11/18/20 Unknown History Metoprolol [Lopressor] 25 mg PO TID 11/18/20 11/18/20 Unknown History Omeprazole 20 mg PO DAILY 11/18/20 11/18/20 Unknown History Pregabalin [Lyrica] 50 mg PO BID 11/18/20 11/18/20 Unknown History Rivastigmine Tartrate 6 mg PO BID 11/18/20 11/18/20 Unknown History [Rivastigmine] Simvastatin 20 mg PO HS 11/18/20 11/18/20 Unknown History traMADoL [Ultram] 50 mg PO TID 11/18/20 11/18/20 Unknown History Active Meds: Active Medications Apixaban (Apixaban 5 Mg Tab) 5 mg PO DAILY [facility] Last Admin: 11/23/20 10:03 Dose: 5 mg Documented by: Cetirizine HCl (Cetirizine 10 Mg Tab) 10 mg PO [facility] Last Admin: 11/23/20 21:11 Dose: 10 mg Documented by: Citalopram Hydrobromide (Citalopram 20 Mg Tab) 40 mg PO DAILY [facility] Last Admin: 11/23/20 10:03 Dose: 40 mg Documented by: Cyanocobalamin (Cyanocobalamin (Vit B-12) 1000 Mcg Tab) 2,500 mcg PO QDAY [facility] Last Admin: 11/23/20 10:05 Dose: 2,500 mcg Documented by: Levothyroxine Sodium (Levothyroxine 75 Mcg Tab) 75 mcg PO 0600 [facility] Last Admin: 11/24/20 05:51 Dose: 75 mcg Documented by: Melatonin (Melatonin 5 Mg Tab) 5 mg PO QHS PRN PRN Reason: Sleep Last Admin: 11/18/20 21:11 Dose: 5 mg Documented by: Memantine (Memantine 10 Mg Tab) 10 mg PO BID [facility] Last Admin: 11/23/20 21:11 Dose: 10 mg Documented by: Metoprolol Tartrate (Metoprolol Tartrate 25 Mg Tab) 25 mg PO TID [facility] Last Admin: 11/23/20 21:12 Dose: Not Given Documented by: Pantoprazole Sodium (Pantoprazole 20 Mg Tab) 20 mg PO QDAY [facility] Last Admin: 11/23/20 10:04 Dose: 20 mg Documented by: Pravastatin Sodium (Pravastatin 20 Mg Tab) 20 mg PO QHS [facility] Last Admin: 11/23/20 21:11 Dose: 20 mg Documented by: Pregabalin (Pregabalin 50 Mg Cap) 50 mg PO BID [facility] Last Admin: 11/23/20 21:27 Dose: 50 mg Documented by: Risperidone (Risperidone 0.25 Mg Tab) 0.5 mg PO BID [facility] Last Admin: 11/23/20 21:11 Dose: 0.5 mg Documented by: Rivastigmine Tartrate (Rivastigmine Tartrate 1.5 Mg Cap) 6 mg PO BID [facility] Last Admin: 11/23/20 21:10 Dose: 6 mg Documented by: Tramadol HCl (Tramadol 50 Mg Tab) 50 mg PO Q12HR PRN PRN Reason: Pain, Moderate (4-6) Trazodone HCl (Trazodone 50 Mg Tab) 50 mg PO QHS [facility] Last Admin: 11/23/20 21:11 Dose: 50 mg Documented by: Results - Results Labs/Vitals: Laboratory Last Values WBC 9.1 K/mm3 (4.5-11.0) 11/22/20 22:46 RBC 3.81 M/mm3 (3.65-5.03) 11/22/20 22:46 Hgb 12.8 gm/dl (11.8-15.2) 11/22/20 22:46 Hct 37.2 % (35.5-45.6) 11/22/20 22:46 MCV 98 fl (84-94) H 11/22/20 22:46 MCH 34 pg (28-32) H 11/22/20 22:46 MCHC 34 % (32-34) 11/22/20 22:46 RDW 14.0 % (13.2-15.2) 11/22/20 22:46 Plt Count 175 K/mm3 (140-440) 11/22/20 22:46 Lymph % (Auto) 19.6 % (13.4-35.0) 11/22/20 22:46 [place] % (Auto) 11.6 % (0.0-7.3) H 11/22/20 22:46 Eos % (Auto) 3.6 % (0.0-4.3) 11/22/20 22:46 Baso % (Auto) 0.6 % (0.0-1.8) 11/22/20 22:46 Lymph # (Auto) 1.8 K/mm3 (1.2-5.4) 11/22/20 22:46 [place] # (Auto) 1.1 K/mm3 (0.0-0.8) H 11/22/20 22:46 Eos # (Auto) 0.3 K/mm3 (0.0-0.4) 11/22/20 22:46 Baso # (Auto) 0.1 K/mm3 (0.0-0.1) 11/22/20 22:46 Seg Neutrophils % 64.6 % (40.0-70.0) 11/22/20 22:46 Seg Neutrophils # 5.9 K/mm3 (1.8-7.7) 11/22/20 22:46 Sodium 138 mmol/L (137-145) 11/22/20 22:46 Potassium 3.9 mmol/L (3.6-5.0) 11/22/20 22:46 Chloride 104.7 mmol/L (98-107) 11/22/20 22:46 Carbon Dioxide 24 mmol/L (22-30) 11/22/20 22:46 Anion Gap 13 mmol/L 11/22/20 22:46 BUN 22 mg/dL (9-20) H 11/22/20 22:46 Creatinine 1.2 mg/dL (0.8-1.3) 11/22/20 22:46 Estimated GFR 57 ml/min 11/22/20 22:46 BUN/Creatinine Ratio 18 % 11/22/20 22:46 Glucose 95 mg/dL (75-100) 11/22/20 22:46 POC Glucose 103 mg/dL (70-105) 11/18/20 16:37 Hemoglobin A1c 5.8 % (4-6) 11/22/20 22:46 Calcium 8.7 mg/dL (8.4-10.2) 11/22/20 22:46 Total Bilirubin 0.40 mg/dL (0.1-1.2) 11/22/20 22:46 AST 22 units/L (5-40) 11/22/20 22:46 ALT 16 units/L (7-56) 11/22/20 22:46 Alkaline Phosphatase 75 units/L (35-129) 11/22/20 22:46 Total Protein 5.8 g/dL (6.3-8.2) L 11/22/20 22:46 Albumin 3.2 g/dL (3.9-5) L 11/22/20 22:46 Albumin/Globulin Ratio 1.2 % 11/22/20 22:46 Triglycerides 144 mg/dL (2-149) 11/22/20 22:46 Cholesterol 150 mg/dL (50-199) 11/22/20 22:46 LDL Cholesterol Direct 126 mg/dL (50-130) 11/22/20 22:46 HDL Cholesterol 33 mg/dL (40-59) L 11/22/20 22:46 Cholesterol/HDL Ratio 4.54 % 11/22/20 22:46 TSH 3.680 mlU/mL (0.270-4.200) 11/22/20 22:46 Last Vital Signs Temp 98.2 F 11/23/20 19:34 Pulse 87 11/23/20 21:12 Resp 17 11/23/20 19:34 BP 114/51 11/23/20 21:12 Pulse Ox 96 11/23/20 19:34
[2020-11-24] MEDS: RIVASTIGMINE TARTRATE 1.5 MG CAP PO SCH (09:34)
[2020-11-24] MEDS: APIXABAN 5 MG TAB PO SCH (09:34)
[2020-11-24] MEDS: CYANOCOBALAMIN (VIT B-12) 1000 MCG TAB PO SCH (09:34)
[2020-11-24] MEDS: PREGABALIN 50 MG CAP PO SCH (09:35)
[2020-11-24] MEDS: METOPROLOL TARTRATE 25 MG TAB PO SCH ×2 (09:36→14:30)
[2020-11-24 09:46] VITALS: BP 99/50
[2020-11-24] MEDS: PANTOPRAZOLE 20 MG TAB PO SCH (09:51)
[2020-11-24] MEDS: CITALOPRAM 20 MG TAB PO SCH (09:52)
[2020-11-24] MEDS: risperiDONE 0.25 MG TAB PO SCH (09:52)
[2020-11-24] MEDS: MEMANTINE 10 MG TAB PO SCH (09:52)
--- NOTE | 2020-11-24 10:33 | Discharge Summary ---
Providers - Providers Date of Admission: 11/18/20 12:00 Date of discharge: 11/24/20 Attending physician: REYNA HILTON MD 11/18/20 06:43 Consult to Physician [CONS] Routine Comment: Consulting Provider: MAXINE LAWTON Physician Instructions: H&P, Manage existing condition Reason For Exam: New pt consultation Primary care physician: [facility] Hospitalization Reason for admission: Psychopathological interference Condition: Good Hospital course: The patient was provided inpatient psychiatric treatment with safe and supportive environment, group/individual therapy, psychiatric medication, medication adjustment, adverse effect monitor, medical evaluation, medical treatment, social service assessment, social support meeting, placement assessment and psycho-education. The patients mood, cognition, behavior, motivation, compliance to treatment and appreciation on family/social support are improved and stabilized. At the time of discharge, the patient had no suicidal ideas, no homicidal ideas, no aggressive thoughts, no endangering behavior and no debilitating adverse effects. The patient agreed on the treatment plan, understood the risk, benefit, alternative treatment, potential consequence of no treatment, and gave informed consent. Over 35 minutes spent for discharge process, education and behavioral counselling. Disposition: DC-01 TO HOME OR SELFCARE Allergies/Adverse Reactions: Allergies amoxicillin [From Augmentin] Allergy (Verified 11/18/20 20:09) Unknown cephalexin [From Keflex] Allergy (Verified 11/18/20 20:09) Unknown clavulanic acid [From Augmentin] Allergy (Verified 11/18/20 20:09) Unknown clindamycin Allergy (Verified 11/18/20 20:09) Unknown orphenadrine [From Norflex] Allergy (Verified 11/18/20 20:09) Unknown Vital Signs: Last Vital Signs Temp 98.2 F 11/23/20 19:34 Pulse 100 H 11/24/20 09:36 Resp 17 11/23/20 19:34 BP 99/50 11/24/20 09:36 Pulse Ox 96 11/23/20 19:34 Last Lab: Laboratory Last Values WBC 9.1 K/mm3 (4.5-11.0) 11/22/20 22:46 RBC 3.81 M/mm3 (3.65-5.03) 11/22/20 22:46 Hgb 12.8 gm/dl (11.8-15.2) 11/22/20 22:46 Hct 37.2 % (35.5-45.6) 11/22/20 22:46 MCV 98 fl (84-94) H 11/22/20 22:46 MCH 34 pg (28-32) H 11/22/20 22:46 MCHC 34 % (32-34) 11/22/20 22:46 RDW 14.0 % (13.2-15.2) 11/22/20 22:46 Plt Count 175 K/mm3 (140-440) 11/22/20 22:46 Lymph % (Auto) 19.6 % (13.4-35.0) 11/22/20 22:46 Ponce % (Auto) 11.6 % (0.0-7.3) H 11/22/20 22:46 Eos % (Auto) 3.6 % (0.0-4.3) 11/22/20 22:46 Baso % (Auto) 0.6 % (0.0-1.8) 11/22/20 22:46 Lymph # (Auto) 1.8 K/mm3 (1.2-5.4) 11/22/20 22:46 Ponce # (Auto) 1.1 K/mm3 (0.0-0.8) H 11/22/20 22:46 Eos # (Auto) 0.3 K/mm3 (0.0-0.4) 11/22/20 22:46 Baso # (Auto) 0.1 K/mm3 (0.0-0.1) 11/22/20 22:46 Seg Neutrophils % 64.6 % (40.0-70.0) 11/22/20 22:46 Seg Neutrophils # 5.9 K/mm3 (1.8-7.7) 11/22/20 22:46 Sodium 138 mmol/L (137-145) 11/22/20 22:46 Potassium 3.9 mmol/L (3.6-5.0) 11/22/20 22:46 Chloride 104.7 mmol/L (98-107) 11/22/20 22:46 Carbon Dioxide 24 mmol/L (22-30) 11/22/20 22:46 Anion Gap 13 mmol/L 11/22/20 22:46 BUN 22 mg/dL (9-20) H 11/22/20 22:46 Creatinine 1.2 mg/dL (0.8-1.3) 11/22/20 22:46 Estimated GFR 57 ml/min 11/22/20 22:46 BUN/Creatinine Ratio 18 % 11/22/20 22:46 Glucose 95 mg/dL (75-100) 11/22/20 22:46 POC Glucose 103 mg/dL (70-105) 11/18/20 16:37 Hemoglobin A1c 5.8 % (4-6) 11/22/20 22:46 Calcium 8.7 mg/dL (8.4-10.2) 11/22/20 22:46 Total Bilirubin 0.40 mg/dL (0.1-1.2) 11/22/20 22:46 AST 22 units/L (5-40) 11/22/20 22:46 ALT 16 units/L (7-56) 11/22/20 22:46 Alkaline Phosphatase 75 units/L (35-129) 11/22/20 22:46 Total Protein 5.8 g/dL (6.3-8.2) L 11/22/20 22:46 Albumin 3.2 g/dL (3.9-5) L 11/22/20 22:46 Albumin/Globulin Ratio 1.2 % 11/22/20 22:46 Triglycerides 144 mg/dL (2-149) 11/22/20 22:46 Cholesterol 150 mg/dL (50-199) 11/22/20 22:46 LDL Cholesterol Direct 126 mg/dL (50-130) 11/22/20 22:46 HDL Cholesterol 33 mg/dL (40-59) L 11/22/20 22:46 Cholesterol/HDL Ratio 4.54 % 11/22/20 22:46 TSH 3.680 mlU/mL (0.270-4.200) 11/22/20 22:46 - Discharge Diagnoses (1) Dementia with behavioral disturbance Status: Acute Qualifiers: Dementia type: vascular dementia Qualified Code(s): F01.51 - Vascular dementia with behavioral disturbance Core Measure Documentation - Palliative Care Palliative Care/ Comfort Measures: Not Applicable - Core Measures Any of the following diagnoses?: none Exam - Constitutional Vitals: Temp Pulse Resp BP Pulse Ox 98.2 F 100 H 17 99/50 96 11/23/20 19:34 11/24/20 09:36 11/23/20 19:34 11/24/20 09:36 11/23/20 19:34 General appearance: Present: no acute distress - EENT Eyes: Present: PERRL, EOM intact ENT: hearing intact, clear oral mucosa - Neck Neck: Present: supple, normal ROM - Rectal Rectal Exam: deferred - Integumentary Integumentary: Present: clear, warm Plan Care Plan Goals: Goals: Maintain good and stable mental health. Plan of Treatment: The patient should be compliant with medications, not to use drugs and not to drink alcohol. The patient understands that if suicidal ideas, homicidal ideas, or any endangering thoughts arise, the patient should immediately seek for emergent assistance including but not limited to crisis hot line and emergency room. Follow up with outpatient Psychiatrist and PCP within 7 - 14 days of discharge. Follow up with: PRIMARY CARE,MD [Primary Care Provider] - 7 Days Prescriptions: traZODone [Desyrel] 50 mg PO QHS #30 tablet Citalopram Hydrobromide [Celexa] 40 mg PO DAILY #30 tab Pregabalin [Lyrica] 50 mg PO BID #60 cap risperiDONE [RisperDAL] 0.5 mg PO BID #60 tablet
== END 2020-11-24 16:15 | disposition home or self-care (01) | DRG 884 ==
LOC: 3A 05:28 → UNDOADMIN 05:28 → 5A 12:00
PROVIDERS: ADMIT Psychiatry & Neurology Psychiatry; ATTEND Psychiatry & Neurology Psychiatry
DX: F01.51 Vascular dementia, unspecified severity, with behavioral disturbance (principal); F41.9 Anxiety disorder, unspecified; F32.9 Major depressive disorder, single episode, unspecified; I67.2 Cerebral atherosclerosis; Z88.1 Allergy status to other antibiotic agents; Z88.8 Allergy status to other drugs, medicaments and biological substances; Z79.899 Other long term (current) drug therapy; Z79.891 Long term (current) use of opiate analgesic; Z79.01 Long term (current) use of anticoagulants
CPT/HCPCS: 36415; 80053; 80061; 82962; 83036; 84443; 85025; G0378; A9270-GY